=== PATIENT | male | born 1965 | race Caucasian/White ===

== ENCOUNTER 2017-11-20 12:07 | Day surgery (SDC) | payer OTHER ==
[~2017-11-20 12:07] MED LIST: GLYCOPYRROLATE 0.4 MG INJ; LIDOCAINE 2% (SDV) 5 ML INJ; NEOSTIGMINE 3 MG/3 ML SYRINGE
[2017-11-20] MEDS ORDERED: ONDANSETRON 4 MG INJ IV (14:30)
[2017-11-20] MEDS ORDERED: EPHEDrine SULFATE 50 MG/5 ML SYG IV (14:30)
[2017-11-20] MEDS ORDERED: hydrALAzine 20 MG INJ IV (14:30)
[2017-11-20] MEDS ORDERED: KETOROLAC 30 MG INJ IV (14:30)
[2017-11-20] MEDS ORDERED: METOCLOPRAMIDE 10 MG INJ IV (14:30)
[2017-11-20] MEDS ORDERED: DIPHENHYDRAMINE 50 MG INJ IV (14:30)
[2017-11-20] MEDS ORDERED: LABETALOL HCL 20MG INJ IV (14:30)
[2017-11-20] MEDS ORDERED: MEPERIDINE 25 MG INJ IV (14:30)
[2017-11-20] MEDS ORDERED: OXYCODONE/ACETAMINOPHEN (5/325) TAB PO ×2 (14:30)
[2017-11-20] MEDS ORDERED: MIDAZOLAM 1 MG/ML 2 ML INJ IV (14:30)
[2017-11-20] MEDS ORDERED: ALBUTEROL 0.083% (NEB) 2.5 MG/3 ML AMP HHN (14:30)
[2017-11-20] MEDS ORDERED: FENTAnyl 50 MCG/ML VIAL IV ×3 (14:30)
[2017-11-20] MEDS ORDERED: HYDROmorphONE (0.2 MG/ML) 10ML SYG IV ×2 (14:30)
[2017-11-20] MEDS ORDERED: PROPOFOL 20 ML (20:14)
[2017-11-20] MEDS ORDERED: ROCURONIUM 50 MG INJ (20:15)
[2017-11-20] MEDS: POLYMYXIN/BACITRACIN 1L IRRIG (20:21)
[2017-11-20] MEDS ORDERED: KETOROLAC 30 MG INJ (21:34)
[2017-11-20] MEDS ORDERED: ONDANSETRON 4 MG INJ (22:00)
[2017-11-20] MEDS: HYDROmorphONE (0.2 MG/ML) 10ML SYG IV (22:08)
== END 2017-11-20 23:00 | disposition home or self-care (01) ==
LOC: SDS 12:07
DX: L98.499 Non-pressure chronic ulcer of skin of other sites with unspecified severity (principal); M65.88 Other synovitis and tenosynovitis, other site; L98.493 Non-pressure chronic ulcer of skin of other sites with necrosis of muscle; S56.512A Strain of other extensor muscle, fascia and tendon at forearm level, left arm, initial encounter; X58.XXXA Exposure to other specified factors, initial encounter; S66.812A Strain of other specified muscles, fascia and tendons at wrist and hand level, left hand, initial encounter
CPT/HCPCS: 25115; 87070; 87075; 87102; 87116; 88313